=== PATIENT | male | born 1985 | race Hispanic/Latino ===

== ENCOUNTER 2020-01-25 10:59 | Emergency (ER) | payer SELFPAY ==
[~2020-01-25] VITALS: Ht 157.5 cm; Wt 72.6 kg
[2020-01-25] MEDS ORDERED: TETANUS/DIPHTHERIA TOX ADULT 0.5 ML SYR IM STA (11:28)
[2020-01-25] MEDS ORDERED: LIDOCAINE 1% W/EPINEPHRINE 20 ML VIAL INJ STA (11:28)
[2020-01-25] MEDS ORDERED: IBUPROFEN IB200 MG PO (11:31)
[2020-01-25] MEDS ORDERED: BACTRIM DS TAB1 EACH PO (11:31)
[2020-01-25] MEDS ORDERED: ACETAMINOPHEN500 MG PO (11:31)
--- NOTE | 2020-01-25 11:31 | Emergency Department Note ---
History of Present Illnes History of Present Illness Chief Complaint: Laceration History of Present Illness This is a 34 year old male accidentally cut his thumb base with knife uncontrol led bleeding. Historian: Patient Arrival Mode: Car History limited by: language barrier Keypuncher Required: Yes Onset (how long ago): hour(s) (1 hour) Radiation: Reports non-radiation Severity: moderate Onset quality: sudden Timing of current episode: constant Relieving factors: none Exacerbating factors: none Associated symptoms: Reports denies other symptoms Treatments prior to arrival: none Past Medical/Family History Physician Review I have reviewed the patient's past medical and family history. Any updates have been documented here. Past Medical History Recent Fever: No Clinical Suspicion of Infectio: No New/Unexplained Change in Ment: No Past Medical History: None Past Surgical History: Back Surgery Social History Smoking Cessation: Unknown if ever smoked Alcohol Use: None Any Illegal Drug Use: No Other Any Pre-Existing Lines (PICC,: No Review of Systems Review of Systems Constitutional: Reports no symptoms EENTM: Reports no symptoms Cardiovascular: Reports no symptoms Respiratory: Reports no symptoms Gastrointestinal: Reports no symptoms Genitourinary: Reports no symptoms Musculoskeletal: Reports as per HPI Integumentary: Reports no symptoms Neurological: Reports no symptoms Psychological: Reports no symptoms Endocrine: Reports no symptoms Hematological/Lymphatic: Reports no symptoms Physical Exam Related Data Triage Vital Signs Vital Signs Date Time Temp Pulse Resp B/P (MAP) Pulse Ox O2 Delivery O2 Flow Rate FiO2 01/25/20 11:22 98.3 83 16 140/80 99 Physical Exam CONSTITUTIONAL Constitutional: Present well-developed, Present well-nourished HENT HENT: Present normocephalic, Present atraumatic, Present oropharynx clear/moist, Present nose normal HENT L/R: Present left ext ear normal, Present right ext ear normal EYES Eyes: Reports PERRL, Reports conjunctivae normal NECK Neck: Present ROM normal PULMONARY Pulmonary: Present effort normal, Present breath sounds normal CARDIOVASCULAR Cardiovascular: Present regular rhythm, Present heart sounds normal, Present capillary refill normal, Present normal rate GASTROINTESTINAL Abdominal: Present soft, Present nontender, Present bowel sounds normal GENITOURINARY Genitourinary: Present exam deferred SKIN Skin: Present warm, Present dry MUSCULOSKELETAL Musculoskeletal: Present ROM normal, Present other (left thumb base on volar side: 2 cm cut deep to abut 1 cm, FROM, capillary refills about 2 second distally, bleeding still. ) NEUROLOGICAL Neurological: Present alert, Present oriented x 3, Present no gross motor or sensory deficits PSYCHOLOGICAL Psychological: Present mood/affect normal, Present judgement normal Procedures Laceration Laceration: Laceration 1 Site: hand Side: left Description: linear, clean Depth: involves muscle layer Local anesthesia: lidocaine 1%, with epi (5 cc) Pre-repair: wound exposed, irrigated extensively Skin layer closed with: nylon Size (cm): 3-0 Number of sutures: 10 Technique: simple, interrupted Size (cm): 3-0 Technique: simple, interrupted Size (cm): 3-0 Technique: simple, interrupted Additional comments 3.0 size nylon used, 2 packages. Bleeding controlled after. Topical Bacitracin applied. Covered with gauze and Coban wrap. Assessment & Plan Medical Decision Making MDM laceration with likely small arterial bleed. Reassessment Reassessment time: 12:21 Reassessment no bleeding, neurovascular intact distally on the left thumb. Assessment & Plan Final Impression: (1) Laceration of left hand with complication (2) Acute pain due to trauma Depart Disposition: HOME, SELF-CARE Last Vital Signs Date Time Temp Pulse Resp B/P (MAP) Pulse Ox O2 Delivery O2 Flow Rate FiO2 01/25/20 11:22 98.3 83 16 140/80 99 Home Meds Active Scripts Ibuprofen (IBUPROFEN IB) 200 Mg Tablet, 3 TAB PO Q6H PRN for pain, #60 Prov:CLARE ABRAHAM MD 01/25/20 Sulfamethoxazole/Trimethoprim (BACTRIM DS TABLET) 1 Each Tablet, 1 TAB PO BID, #20 TAB 0 Refills Prov:CLARE ABRAHAM MD 01/25/20 Acetaminophen (ACETAMINOPHEN) 500 Mg Tablet, 1 TAB PO Q6H PRN for pain, #90 THERAPEUTICALLY SUBSTITUTED WITH ACETAMINOPHEN 325MG Prov:CLARE ABRAHAM MD 01/25/20 Physician Attestation Provider Attestation rec pt to f/u with hand surgeon CLARE ABRAHAM MD Jan 25, 2020 11:31
[2020-01-25] MEDS ORDERED: LIDOCAINE 1% W/EPINEPHRINE 20 ML VIAL ONE (11:33)
[2020-01-25] MEDS ORDERED: TETANUS/DIPHTHERIA TOX ADULT 0.5 ML SYR ONE (11:42)
== END 2020-01-25 12:32 | disposition home or self-care (01) ==
LOC: FSED 11:30
DX: S61.012A Laceration without foreign body of left thumb without damage to nail, initial encounter (principal); W26.0XXA Contact with knife, initial encounter
CPT/HCPCS: 90714; 99284